=== PATIENT | female | born 1970 | race Caucasian/White ===

== ENCOUNTER 2021-12-08 10:57 | Outpatient (CLI) | payer BC, SELFPAY ==
--- NOTE | 2021-12-08 10:15 | DI.RAD_ITS ---
Exam(s) XR KNEE LT 2V AP,LAT EXAM: XR KNEE LT 2V AP,LAT CLINICAL HISTORY: left knee pain. TECHNIQUE: 2D digital imaging was performed of the left knee. Two images were obtained. AP and lat eral views were obtained. COMPARISON: No exams were available for comparison FINDINGS: BONES: No acute fracture is present. No bony destructive lesion is seen. JOINTS: The knee is normally aligned. No joint effusion is seen. SOFT TISSUE: Normal. IMPRESSION: Normal radiographs of the left knee. DATA REPOSITORY: RADIATION DOSE DELIVERED:
== END 2021-12-08 10:58 | disposition home or self-care (01) ==
LOC: DIORS 10:58
PROVIDERS: Visit Provider Student in an Organized Health Care Education/Training Program
DX: M25.562 Pain in left knee (principal)
CPT/HCPCS: 73560

== ENCOUNTER 2022-06-23 08:52 | Emergency (ER) | payer BC, SELFPAY ==
[2022-06-23 08:58] VITALS: BP 124/62; PULSE 80; RESP 14; TEMP 36.7; O2SAT 100
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
== END 2022-06-23 09:49 | disposition home or self-care (01) ==
PROVIDERS: Emergency Provider Physician Assistant; PCP Nurse Practitioner Family
DX: S63.602A Unspecified sprain of left thumb, initial encounter (principal); V29.9XXA Motorcycle rider (driver) (passenger) injured in unspecified traffic accident, initial encounter
CPT/HCPCS: 29130; 99283; 73130; 99282

== ENCOUNTER 2022-09-17 01:16 | Outpatient (CLI) | payer BC, SELFPAY ==
[2022-09-17 12:14] LABS: HCT 39.4 % (36.0-46.0); HGB 12.7 g/dL (11.2-15.7); MCH 31.7 pg (27.0-33.0); MCHC 32.2 % (32.0-36.0); MCV 98 fL (80-95); MPV 10.5 fL (8.0-11.0); Platelet Count 208 10^3/uL (130-400); RBC 4.01 10^6/uL (3.93-5.22); RDW 11.9 % (11.7-14.6); RDW-SD 43.1 fL; WBC 3.29 10^3/uL (4.4-10.8)
[2022-09-17 12:54] LABS: Anion Gap 5.9 mmol/L (3-11); BUN 12 mg/dL (7-18); CO2 28.1 mmol/L (21.0-32.0); CREATININE 0.8 mg/dL (0.55-1.02); Calcium 9.5 mg/dL (8.5-10.1); Calculated LDL 111 mg/dL (<100); Chloride 102 mmol/L (98-107); Cholesterol 195 mg/dL (<200); Estimated GFR 90.27 (mL/min/1.73m2); Glucose 80 mg/dL (74-106); HDL Cholesterol 76 mg/dL (40-60); Potassium 4.4 mmol/L (3.5-5.1); Sodium 136 mmol/L (136-145); Triglyceride 44 mg/dL (<150)
[2022-09-17 12:58] LABS: Hemoglobin A1C 5.6 % (<5.7)
== END 2022-09-17 01:17 | disposition home or self-care (01) ==
LOC: LOS 01:16
PROVIDERS: PCP Nurse Practitioner Family; Visit Provider Nurse Practitioner Family
DX: Z00.00 Encounter for general adult medical examination without abnormal findings (principal); Z13.220 Encounter for screening for lipoid disorders; Z13.1 Encounter for screening for diabetes mellitus; Z13.228 Encounter for screening for other metabolic disorders; Z13.0 Encounter for screening for diseases of the blood and blood-forming organs and certain disorders involving the immune mechanism
CPT/HCPCS: 36415; 80048; 80061; 85027; 83036

== ENCOUNTER → 2023-07-25 02:31 | Outpatient (CLI) | payer BC, SELFPAY ==
--- NOTE | 2023-07-25 09:17 | DI.MAMMO_ITS ---
Exam(s) MAMMO SCREENING EXAM: MAMMO SCREENING CLINICAL HISTORY: screening,Z12.39 TECHNIQUE: Bilateral full field digital CC and MLO mammographic images were obtained with 3D tomosyn thesis and utilizing computer aided detection (CAD). COMPARISON: 2013 through 2020 from [facility] in [place]. FINDINGS: Masses/Architectural Distortion: None seen. Microcalcifications: No suspicious pleomorphic-type are seen. Skin Thickening/Nipple Retraction: None. IMPRESSION: 1. No significant interval change with no specific features of malignancy noted. 2. Unless there is more urgent need, screening mammography is recommended, as per [place] [employer] guidelines. Category: Breast Density - Category D - Extremely dense Breast density category C or D implies that the patient has dense breast tissue. Dense breast tissue is very common and is not abnormal but dense breast tissue can make it harder to find cancer on a ma mmogram. Also, dense breast tissue may increase their breast cancer risk. This information about the result of the mammogram report was provided to the patient to raise their awareness. Use this report when you speak with the patient about their risks for breast cancer, which includes their family hist ory. At that time, you may recommend for more screening tests (Ultrasound or MRI) as they might be us eful based on their risk. A negative radiographic report should not delay biopsy if a dominant or clinically suspicious mass is present. Up to ten percent of cancers are not identified on mammography. A negative report may reinforce clinical impression. Adenosis and dense breasts may obscure an underlying neoplasm. False positive reports average 6 to 10%. Patient will receive a letter notifying them of these results.
== END ==
PROVIDERS: PCP Nurse Practitioner Family; Visit Provider Obstetrics & Gynecology
DX: Z12.31 Encounter for screening mammogram for malignant neoplasm of breast (principal)
CPT/HCPCS: 77063; 77067

== ENCOUNTER 2023-08-26 10:30 | Outpatient (CLI) | payer BC, SELFPAY ==
[2023-08-26 12:16] LABS: Absolute Basophil Count 0.03 10^3/uL (0.0-0.2); Absolute Eosinophil Count 0.12 10^3/uL (0.0-0.7); Absolute Lymphocyte Count 1.23 10^3/uL (1.2-3.4); Absolute Monocyte Count 0.27 10^3/uL (0.1-0.8); Absolute Neutrophil Count 1.69 10^3/uL (1.2-6.7); Basophils % 0.9; Eosinophils % 3.6; HCT 40.1 % (36.0-46.0); HGB 13.4 g/dL (11.2-15.7); Lymphocytes % 36.8; MCH 32.4 pg (27.0-33.0); MCHC 33.4 % (32.0-36.0); MCV 97 fL (80-95); MPV 10.9 fL (8.0-11.0); Monocytes % 8.1; Neutrophils % 50.6; Platelet Count 202 10^3/uL (130-400); RBC 4.13 10^6/uL (3.93-5.22); RDW 11.9 % (11.7-14.6); RDW-SD 42.5 fL; WBC 3.34 10^3/uL (4.4-10.8)
[2023-08-26 12:51] LABS: Anion Gap 9.5 mmol/L (3-11); BUN 10 mg/dL (7-18); CO2 27.5 mmol/L (21.0-32.0); CREATININE 0.7 mg/dL (0.55-1.02); Calcium 9.7 mg/dL (8.5-10.1); Chloride 105 mmol/L (98-107); Glucose 87 mg/dL (74-106); Potassium 3.9 mmol/L (3.5-5.1); Sodium 142 mmol/L (136-145); Vitamin B12 376 pg/mL (193-986)
== END 2023-08-26 10:31 | disposition home or self-care (01) ==
PROVIDERS: PCP Nurse Practitioner Family; Visit Provider Nurse Practitioner Family
DX: Z00.00 Encounter for general adult medical examination without abnormal findings (principal)
CPT/HCPCS: 36415; 80048; 82607; 85025

== ENCOUNTER 2024-01-08 12:13 | Emergency (ER) | payer BC, SELFPAY ==
[2024-01-08 12:16] VITALS: BP 149/60; PULSE 65; RESP 16; TEMP 36.9; O2SAT 100
--- NOTE | 2024-01-08 13:15 | DI.RAD_ITS ---
Exam(s) XR THUMB RT EXAM: XR THUMB RT CLINICAL HISTORY: deep laceration. TECHNIQUE: 2D digital imaging was performed. Three views. COMPARISON: CR XR HAND LT COMPLETE from 06/23/2022 FINDINGS: BONES: No acute fracture is present. No bony destructive lesion is seen. JOINTS: No dislocation present. SOFT TISSUE: No foreign body. No soft tissue gas. IMPRESSION: No acute bony abnormality. No foreign body. DATA REPOSITORY: RADIATION DOSE DELIVERED:
--- NOTE | 2024-01-08 13:40 | W.ED.GENAD ---
Discharge Plan Disposition Patient Disposition: Home Condition: Improving Discharge Details Clinical Impression: Finger laceration Primary Care Provider: Jacqui Mccartney ED Provider: Jan Mccollum Home Meds and New Rx's Prescriptions: New cephalexin 500 mg capsule 500 mg PO TID 5 Days Qty: 15 0RF No Action multivitamin Tablet 1 tab PO DAILY albuterol sulfate 90 mcg/actuation HFA aerosol inhaler 2 puff inhalation Q6H PRN (Reason: shortness of breath or wheezing) Qty: 8.5 3RF Discharge Instructions Instructions: Finger Laceration (ED) HPI General Date/Time Provider Initiated Documentation: 01/08/24 12:21. HPI Narrative: 53-year-old female presents after lacerating right thumb with a kitchen knife, was cleaning the nifedipine use to cut fruits and vegetables. Related Data Home Medications Medication Instructions Recorded Confirmed multivitamin 1 tab PO DAILY 12/08/21 01/08/24 albuterol sulfate 90 mcg/actuation 2 puff inhalation Q6H PRN 08/26/22 01/08/24 aerosol inhaler shortness of breath or wheezing #8.5 grams cephalexin 500 mg capsule 500 mg PO TID 5 days #15 caps 01/08/24 Previous Rx's Medication Instructions Recorded albuterol sulfate 90 mcg/actuation 2 puff inhalation Q6H PRN 08/26/22 aerosol inhaler shortness of breath or wheezing #8.5 grams cephalexin 500 mg capsule 500 mg PO TID 5 days #15 caps 01/08/24 Allergies Allergy/AdvReac Type Severity Reaction Status Date / Time No Known Allergies Allergy Verified 01/08/24 15:00 General Stated Complaint: Laceration RAMILA: 4 Review of Systems Narrative: Review of Systems Constitutional: negative Eyes: negative ENT: negative Cardiovascular: negative Respiratory: negative Gastrointestinal: negative : negative Musculoskeletal: Thumb laceration right Skin: negative Neurologic: negative Psych: negative Exam Narrative Exam Narrative: Right hand: 1.5 cm linear laceration to right thumb volar aspect crossing interphalangeal joint, hemostatic no foreign body, flexion extension of thumb intact abduction abduction opposition of thumb intact, warm well-perfused extremity, slight decrease sensation to light touch distal tip of right thumb, sensation and remaining aspect of digit and hand intact median radial and ulnar nerve sensory distribution intact, warm well-perfused extremity Course Vital Signs Vital signs: Vital Signs Temperature 36.9 C 01/08/24 12:16 Pulse 65 01/08/24 12:16 Respiratory Rate 16 01/08/24 12:16 Blood Pressure 149/60 H 01/08/24 12:16 Pulse Oximetry 100 01/08/24 12:16 Temperature 36.9 C 01/08/24 12:16 Temperature Source Skin 01/08/24 12:16 Pulse 65 01/08/24 12:16 Respiratory Rate 16 01/08/24 12:16 Respiratory Effort Normal 01/08/24 12:40 Blood Pressure 149/60 H 01/08/24 12:16 Blood Pressure Position Sitting 01/08/24 12:16 Pulse Oximetry 100 01/08/24 12:16 Oxygen Delivery Method Room Air 01/08/24 12:16 Oxygen Flow Rate 0 01/08/24 12:16 Pain Level 2 01/08/24 12:16 Procedures Laceration Laceration 1: Site: upper extremity (First digit right upper extremity) Side (If applicable): right Size (cm): 1.5 Local Anesthetic: other anesthetic (Topical LAT) Pre-repair: wound explored and irrigated extensively Skin layer closed with: vicryl Size (cm): 5-0 Number of sutures: 1 Technique: simple, interrupted Medical Decision Making 53-year-old female presents after lacerating a volar aspect of right thumb with a kitchen knife that she was cleaning, knife is being used to cut vegetables and fruit, hemostatic no foreign body appreciated, laceration crosses interphalangeal joint line, flexion extension intact abduction adduction and opposition of thumb intact, sensation to touch distal aspect of volar tip of thumb decreased, remaining portion of thumb sensate, median right ulnar nerve distribution throughout remaining aspect of limb intact, warm well-perfused. Given sensation of deep wound per patient have added x-ray to assess for any bony involvement or foreign body however less likely, no evidence of tendinous involvement, likely peripheral vascular injury. Will start empiric Keflex given dirty knife, patient is up-to-date with Tdap. Will irrigate and closed with simple interrupted sutures. 15:00 1 x 5-0 Vicryl simple interrupted suture; x-ray clear. Patient given empiric dose of Keflex will be started on outpatient Keflex given dirty knife. Home care instructions and return precautions given Quality:SDOH Health Related Social Needs: No Data to Display PFSH All Active Problems (Updated 01/08/24 @ 15:01 by Jan Mccollum MD) Finger laceration (Acute) Allergic rhinitis (Chronic) Raynauds phenomenon (Chronic) Medical History Asthma In childhood Surgical History No significant past surgical history Family History Mother Hypertension Father Hypertension Sister Breast cancer Brother No problems noted. Son No problems noted. Son No problems noted. Daughter No problems noted. Maternal Grandfather , 79 after bypass surgery Heart disease Paternal Grandfather , 40s No problems noted. Maternal Grandmother No problems noted. Paternal Grandmother , 55 + or - Bladder cancer Social History Smoking/Tobacco Use Status: Never Second Hand Exposure: Yes Smoking risk assessment performed?: Yes Alcohol Intake: current Alcohol type: wine Drug use: Never Substance use type: does not use Caregiver/Support person: No Household members: spouse and children Housing: house Communication Needs: None Do you need help understanding health information?: Never Pets and animals: Yes Pets and animals: cat(s) and dog(s) Sexually active: Yes Do you think of yourself as: straight/heterosexual Current gender identity: female What is your relationship status?: How often do you talk on the phone with friends or family?: once per week How often do you get together with friends or relatives?: twice per week How often do you attend yazdanism or rastafarian services?: decline to answer Do you belong to any clubs or organized social groups?: no Panel score (0-1 are the most socially isolated patients): 2 What type of physical activity do you participate in: walking, bicycling and running Duration: 45-60 minutes/day Frequency: daily Lilian/Orthodoxy: No preference Special lilian needs: No Seatbelt use: always Helmet use: Yes Drive intox or ride w/intox national dedicated truck driver: No Do you feel safe at home: Yes Female Reproductive History Menstrual control method: none Menopause type: natural Date of menopause: 12/31/19 History History 3 Para 3 Hx # Term Pregnancies Multiple births Hx # Pregnancies Ectopic pregnancies AB induced Hx Number of Living Children 3 AB spontaneous Past Pregnancies Del. Date GA/Weeks # Preg Succ Route Wgt Sex Labor Lgth Anesthesia Location Prov Complic 05/26/08 40 Yes Female [place] 02/20/10 40 Yes 2948.35 g Male [place] 03/01/12 36 Yes 2438.059 g Male [place] Delivery Date: 05/26/08 Last Updated by: Katherin Maza Delivery Date: 02/20/10 Last Updated by: Katherin Green Delivery Date: 03/01/12 Last Updated by: Katherin Dutton
[2024-01-08] MEDS: Cephalexin 500 MG CAP PO (14:48)
[2024-01-08] MEDS: Lidocaine/Epinephri/Tetracaine Topical Gel 3 ML TP (14:52)
--- NOTE | 2024-01-08 14:55 | DI.VRAD_ITS ---
PROCEDURE INFORMATION: Exam: XR Right Finger(s) Exam date and time: 01/08/2024 2:07 PM Age: 53 years old Clinical indication: Injury or trauma; Other: Deep laceration; Finger; Right; Thumb TECHNIQUE: Imaging protocol: Radiologic exam of the right fingers. Views: Minimum 2 views. COMPARISON: No relevant prior studies available. FINDINGS: Bones/joints: No acute fracture or dislocation. Mild degenerative disease of the 1st carpometacarpal joint. Soft tissues: No radiopaque foreign body. No soft tissue emphysema. IMPRESSION: No acute fracture or dislocation. Dictated and Authenticated by: Dank Carlton MD. Ordering:JESUS Montoya MD
[2024-01-08 15:05] VITALS: BP 128/66; PULSE 64; RESP 16; TEMP 36.9; O2SAT 100; O2SAT 99
== END 2024-01-08 15:07 | disposition home or self-care (01) ==
PROVIDERS: Emergency Provider Emergency Medicine; PCP Nurse Practitioner Family
DX: S61.011A Laceration without foreign body of right thumb without damage to nail, initial encounter (principal); W26.0XXA Contact with knife, initial encounter; Y93.G1 Activity, food preparation and clean up; Y92.010 Kitchen of single-family (private) house as the place of occurrence of the external cause
CPT/HCPCS: 12001; 99283; 73140

== ENCOUNTER 2024-09-05 00:52 | Outpatient (CLI) | payer BC, SELFPAY ==
--- NOTE | 2024-09-05 09:30 | DI.MAMMO_ITS ---
Exam(s) MAMMO SCREENING EXAM: MAMMO SCREENING CLINICAL HISTORY: screening. TECHNIQUE: Bilateral full field digital CC and MLO mammographic images were obtained with 3D tomosyn thesis and utilizing computer aided detection (CAD). COMPARISON: 2014 through 2022 FINDINGS: Masses: None seen. Architectural Distortion: None seen. Microcalcifications: No suspicious pleomorphic-type are seen. Skin Thickening/Nipple Retraction: None. IMPRESSION: 1. No significant interval change with no specific features of malignancy noted. 2. Unless there is more urgent need, annual screening mammography is recommended, as per [place] [employer] guidelines. BI-RADS Category 1-negative Breast Density - Category D - extremely dense Breast Density Category D: The mammogram demonstrates the patient's breast tissue is dense. Dense vince ast tissue is very common and is not abnormal but dense breast tissue can make it harder to find canc er on a mammogram. Also, dense breast tissue may increase their breast cancer risk. This information about the result of the mammogram report was provided to the patient to raise their awareness. Use th is report when you speak with the patient about their risks for breast cancer, which includes their f amily history. At that time, you may recommend for more screening tests (Ultrasound or MRI) as they m ight be useful based on their risk. A negative radiographic report should not delay biopsy if a dominant or clinically suspicious mass is present. Up to ten percent of cancers are not identified on mammography. A negative report may reinforce clinical impression. Adenosis and dense breasts may obscure an underlying neoplasm. False positive reports average 6 to 10%.
== END 2024-09-05 01:12 ==
LOC: DI 00:52
PROVIDERS: PCP Nurse Practitioner Family; Visit Provider Obstetrics & Gynecology
DX: Z12.31 Encounter for screening mammogram for malignant neoplasm of breast (principal)
CPT/HCPCS: 77063; 77067

== ENCOUNTER 2024-12-10 10:41 | Outpatient (REF) | payer BC, SELFPAY ==
--- NOTE | 2024-12-10 09:40 | PAPFT_PTH ---
PATIENT: Roula Hester LOC: [facility] U#:[id number] AGE/SX: 54/F ROOM: RE12/10/[address]: Ester Wright MD : 1970 BED: DIS: 12/10/2024 SPEC #: [id number] RECD: 12/10/24 13:10 STATUS: SOPHIE TERRY #: [id number] DARRON: 12/10/24 09:[address]: Ester Wright DEPT: [facility] Cytology RECD BY: Helen Del Rio ENTERED: 12/10/24 13:10 SP TYPE: PAPFT OT DR: Jacqui Mccartney, BIOLOGY INTERN Tissues: 1 - CX/ENDOCX FOR PAP SMEARS Procedures: PAP THIN PREP/[facility] Screening HPV DNA PROBE Comments: [id number] (HPV 16 & 18/45)
== END 2024-12-10 10:42 | disposition home or self-care (01) ==
LOC: LBN 10:41
PROVIDERS: PCP Nurse Practitioner Family; Visit Provider Obstetrics & Gynecology
DX: Z11.51 Encounter for screening for human papillomavirus (HPV) (principal); Z01.419 Encounter for gynecological examination (general) (routine) without abnormal findings; R87.618 Other abnormal cytological findings on specimens from cervix uteri
CPT/HCPCS: 88142; 87624

== ENCOUNTER → 2025-09-16 02:32 | Outpatient (CLI) | payer BC, SELFPAY ==
--- NOTE | 2025-09-16 07:30 | DI.MAMMO_ITS ---
Exam(s) MAMMO SCREENING EXAM: MAMMO SCREENING CLINICAL HISTORY: screening,z12.31. TECHNIQUE: Bilateral full field digital CC and MLO mammographic images were obtained with 3D tomosynthesis and utilizing computer aided detection (CAD). COMPARISON: Prior mammograms were reviewed. FINDINGS: There has been no significant change in the appearance and distribution of the fibroglandular tissue which is again noted be heterogeneously dense.. No CAD designations. There are no new spiculated masses nor new malignant appearing microcalcification groups. There is no significant architectural distortion nor skin thickening-retraction. IMPRESSION: No radiographic evidence of malignancy. BI-RADS Category 1 - Negative Breast Density - Category C - The breast are heterogeneously dense, which may obscure small masses. Breast density Category C or D implies that the patient has dense breast tissue. Dense breast tissue can make it harder to find cancer on a mammogram. Dense breast tissue is also associated with an increased risk of breast cancer. This information about the result of the mammogram report was provided to the patient to raise their awareness. Use this report when you speak with the patient about their risks for breast cancer, which includes their family history. At that time, you may recommend additional screening tests (Ultrasound or MRI) as these tests may add significant information. A negative radiographic report should not delay biopsy if a dominant or clinically suspicious mass is present. Up to ten percent of cancers are not identified on mammography. A negative report may reinforce clinical impression. Adenosis and dense breasts may obscure an underlying neoplasm. False positive reports average 6 to 10%. Patient will receive a letter notifying them of these results.
== END ==
LOC: DI 02:32
PROVIDERS: PCP Nurse Practitioner Family; Visit Provider Obstetrics & Gynecology
DX: Z12.31 Encounter for screening mammogram for malignant neoplasm of breast (principal)
CPT/HCPCS: 77063; 77067